=== PATIENT | female | born 1955 | race Caucasian/White ===

== ENCOUNTER → 2016-07-30 | Day surgery (SDC) | payer OTHER ==
[~2016-07-30] MED LIST: ARIP1TAB16 PO; ARIP2 PO; ASPI325T PO; ATEN-102 PO; ATOR40TA16 PO; CLON1 PO; CLON2TAB PO; CLOP75TA PO; CYMB60CA PO; DULO1CAP3 PO; FURO20TA PO; FURO40TA PO; GABA100C4 PO; GLIM4TAB PO; GLUCTAB PO; HYDR-3583 PO; LACTATED RINGER'S 1000 ML INJ 1,000 ML ONE; LORTA5 PO; LOVA1TAB47 PO; METF1000 PO; METO5TAB46 PO; PANT40TA3 PO; POTA-243 PO; POTA75TA PO; PROBCAP11 PO; PROPOFOL 500 MG/50 ML BTL IV ONE; PROT40TA PO; TOPA25TA8 PO; TOPI50TA4 PO
== END | disposition home or self-care (01) ==
LOC: ESDC 07:16
PROVIDERS: ATTEND Surgery
DX: K21.9 Gastro-esophageal reflux disease without esophagitis (principal); K29.70 Gastritis, unspecified, without bleeding
CPT/HCPCS: 00740; 43239; 88305; 88312; J3010; J7120

== ENCOUNTER 2016-08-26 15:20 | Inpatient (IN) | payer OTHER, MEDICAID, MEDICARE ==
[~2016-08-26] VITALS: Ht 167.6 cm; Wt 127.9 kg
[2016-09-05] MEDS ORDERED: TOPA25TA8 PO (15:05)
[2016-09-05] MEDS ORDERED: PROBCAP11 PO (15:05)
[2016-09-05] MEDS ORDERED: DULO1CAP3 PO (15:05)
[2016-09-05] MEDS ORDERED: METF1000 PO (15:05)
[2016-09-05] MEDS ORDERED: PANT40TA3 PO (15:05)
[2016-09-05] MEDS ORDERED: ATOR40TA16 PO (15:05)
[2016-09-05] MEDS ORDERED: HYDR-3583 PO (15:05)
[2016-09-05] MEDS ORDERED: CLON2TAB PO (15:05)
[2016-09-05] MEDS ORDERED: ARIP1TAB16 PO (15:05)
[2016-09-05] MEDS ORDERED: FURO20TA PO (15:05)
[2016-09-05] MEDS ORDERED: GABA100C4 PO (15:05)
[2016-09-05] MEDS ORDERED: GLIM4TAB PO (15:05)
[2016-09-05] MEDS ORDERED: POTA-243 PO (15:05)
[2016-09-05] MEDS ORDERED: CLOP75TA PO (15:05)
[2016-09-09] MEDS ORDERED: SCOPOLAMINE 1.5 MG PATCH ONE (06:08)
[2016-09-09] MEDS ORDERED: APREPITANT 40 MG CAP ONE (06:09)
[2016-09-09] MEDS ORDERED: ACETAMINOPHEN 1000 MG/100 ML VIAL IV ONE (06:09)
[2016-09-09] MEDS ORDERED: metroNIDAZOLE 500 MG INJ 100 ML IV ONE (06:09)
[2016-09-09] MEDS ORDERED: ONDANSETRON HCL 4 MG/2 ML VIAL ONE (06:09)
[2016-09-09] MEDS ORDERED: ceFAZolin 2 GM PREMIX 50 ML IV SCH (06:15)
[2016-09-09] MEDS ORDERED: ACETAMINOPHEN 1000 MG/100 ML VIAL IV SCH (06:15)
[2016-09-09] MEDS ORDERED: APREPITANT 40 MG CAP PO SCH (06:15)
[2016-09-09] MEDS ORDERED: SCOPOLAMINE 1.5 MG PATCH T-DERMAL SCH (06:15)
[2016-09-09] MEDS ORDERED: ONDANSETRON HCL 4 MG/2 ML VIAL IV PUSH SCH (06:15)
[2016-09-09] MEDS ORDERED: metroNIDAZOLE 500 MG INJ 100 ML IV SCH (06:15)
[2016-09-09 06:17] VITALS: BP 131/75; PULSE 64; RESP 20; TEMP 97.6; O2SAT 95
[2016-09-09] MEDS ORDERED: METOPROLOL TARTRATE 25 MG TAB PO PRN (06:30)
[2016-09-09] MEDS ORDERED: SODIUM CHLORID 0.9% 500 ML IV SCH (06:30)
[2016-09-09] MEDS ORDERED: LACTATED RINGER'S 1000 ML IV SCH (06:30)
[2016-09-09] MEDS ORDERED: INSULIN HUMAN REGULAR 1,000 UNITS/10 ML VIAL SQ PRN (06:30)
[2016-09-09] MEDS ORDERED: BUPIVACAINE/EPINEPHRINE 0.25% PF 30 ML VIAL ONE (07:01)
[2016-09-09] MEDS ORDERED: MIDAZOLAM HCL 2 MG/2 ML VIAL ONE (07:16)
[2016-09-09] MEDS ORDERED: BUPIVACAINE/EPINEPHRINE 0.25% PF 30 ML VIAL INFIL ONE (07:56)
[2016-09-09] MEDS ORDERED: METHYLENE BLUE 100 MG/10 ML VIAL OTHER ONE (07:56)
[2016-09-09] MEDS ORDERED: ENALAPRILAT 1.25 MG/ML VIAL IV PUSH PRN (09:30)
[2016-09-09] MEDS ORDERED: NALOXONE HCL 0.4 MG/ML AMP IV PRN (09:30)
[2016-09-09] MEDS ORDERED: diphenhydrAMINE HCL 50 MG/ML VIAL IV PRN (09:30)
[2016-09-09] MEDS ORDERED: SODIUM CHLORIDE 0.9% FLUSH 5 ML FLUSH IVF PRN (09:30)
[2016-09-09] MEDS ORDERED: GLUCAGON 1 MG/ML VIAL OTHER PRN (09:30)
[2016-09-09] MEDS ORDERED: ACETAMINOPHEN 1000 MG/100 ML VIAL IV PRN (09:30)
[2016-09-09] MEDS ORDERED: diphenhydrAMINE HCL ELIXIR 12.5 MG/5 ML CUP PO PRN (09:30)
[2016-09-09] MEDS ORDERED: ACETAMINOPHEN 325MG/HYDROcodone 7.5MG/15ML UDC PO PRN (09:30)
[2016-09-09] MEDS ORDERED: ONDANSETRON HCL 4 MG/2 ML VIAL IV PRN (09:30)
[2016-09-09] MEDS ORDERED: DEXTROSE 50% IN WATER 50 ML VIAL(D50) IV PUSH PRN (09:30)
[2016-09-09] MEDS ORDERED: Post-op Orders (for Pharmacy) MISC XX ONE (09:30)
[2016-09-09] MEDS ORDERED: NEOSTIGMINE 3 MG/3 ML SYR IV ONE (09:37)
[2016-09-09] MEDS ORDERED: LACTATED RINGER'S 1000 ML INJ 1,000 ML IV ONE (09:37)
[2016-09-09] MEDS ORDERED: ONDANSETRON HCL 4 MG/2 ML VIAL IV PUSH ONE (09:37)
[2016-09-09] MEDS ORDERED: PROPOFOL 200 MG/20 ML AMP IV ONE (09:37)
--- NOTE | 2016-09-09 09:37 | MP ---
cc: CHASE ORTA DATE OF 1955 DATE OF OPERATION 09/09/2016 PREOPERATIVE DIAGNOSIS Morbid obesity with a BMI of 45, complicated by obstructive sleep apnea, hypercholesterolemia, type 2 diabetes. POSTOPERATIVE DIAGNOSIS Morbid obesity with a BMI of 45, complicated by obstructive sleep apnea, hypercholesterolemia, type 2 diabetes. PROCEDURE PERFORMED Laparoscopic Amadou-en-Y gastric bypass, 100 cm Amadou limb, antegastric, antecolic. SURGEON Chase Pinedo MD ANESTHESIA General endotracheal anesthesia. ESTIMATED BLOOD LOSS Scant FINDINGS 1. Fatty liver. 2. Adhesions of omentum to small bowel. SPECIMENS None. COMPLICATIONS None. OPERATION The patient was brought into the operating room and placed on the operating table in supine position. Bilateral sequential inflation devices were placed on the lower extremities, general anesthesia instituted, Ernandez catheter placed, antibiotics initiated. The abdomen was prepped and draped sterilely. A point 18 cm distal to the xiphoid in the midline was anesthetized with 0.25% Marcaine with epinephrine. A skin incision was made, a 5-mm Optiview port placed under direct vision and pneumoperitoneum created. Under direct vision, a 5-mm left upper quadrant, a 12-mm left upper quadrant, a 12-mm right upper quadrant and 5-mm right upper quadrant ports were placed. Prior to placement of all ports, the skin and peritoneum were anesthetized with 0.25% Marcaine with epinephrine. The patient patient's omentum was taken off of the abdominal wall using a harmonic. It was split down the middle to create a path for the Amadou limb. The ligament of Treitz was identified, a point 40 cm distal identified, the small bowel divided using an [place] Flex staple with a white load, reinforced with SeamGuard. The distal segment was brought up for a distance of 100 cm, enterotomy created in this region, enterotomy created in the biliopancreatic limb and a [id number] stapled jejunojejunostomy created in the usual manner. The mesenteric defect of the jejunojejunostomy was closed with 2-0 Surgidac suture in a running manner. The patient was placed in reverse Trendelenburg position, left side up. The Lucy Flex retractor placed and the left lobe of the liver retracted. The angle of His was taken down bluntly, a point 5 cm distal to the GE junction along the lesser curve identified, the lesser sac entered using blunt dissection, the stomach partitioned horizontally using the [place] Flex stapler blue load. Additional firings were taken toward the angle of His to completely divide the stomach. A gastrotomy was created in the trang-stomach, enterotomy in the Amadou limb, a gastrojejunostomy created with a stomal opening of 2 cm. An 18-[place] OG tube was placed across the anastomosis. The defect was then closed in two layers of running 2-0 Vicryl. Prior to placement of the second layer, methylene blue was instilled through the OG tube. There was no evidence of extravasation. Evicel was then placed over the gastrojejunostomy, jejunojejunostomy and all staple lines, a 10 flat GAMAL placed posterior to the gastrojejunostomy. The operative field was inspected. Hemostasis was present. The Lucy Flex retractor was removed The pneumoperitoneum was released, all ports removed, all skin incisions closed with 4-0 Monocryl. The abdominal wall was cleaned and a sterile dressing placed. The patient was awakened and taken to recovery room stable. MD ANALI Minor/SSB /9:29 AM /9:32 AM BRENDA
[2016-09-09] MEDS ORDERED: fentaNYL CITRATE 250 MCG/5 ML AMP ONE (09:45)
[2016-09-09] MEDS ORDERED: MORPHINE SULFATE 30 MG/30 ML PCA IV SCH (09:45)
[2016-09-09] MEDS ORDERED: *ONDANSETRON 4 MG VIAL PERIprocedural Use ONLY ONE (09:48)
[2016-09-09] MEDS: METOCLOPRAMIDE HCL 10 MG/2 ML VIAL IVS SCH ×3 (09:51→20:42)
[2016-09-09] MEDS ORDERED: *morphine SULFATE 8 MG/ML PERIprocedure ONLY ONE ×2 (09:56→10:15)
[2016-09-09] MEDS ORDERED: *RESP: ALBUTEROL 2.5 MG/3 ML NEB (PRN) PERIprocedural Use ONLY NEB ONE (10:15)
[2016-09-09] MEDS ORDERED: *HYDROmorphone PF 1 MG VIAL PERIprocedural Use ONLY ONE (10:31)
[2016-09-09] MEDS: INSULIN NovoLIN REGULAR SUPPLEMENTAL SCALE SQ SCH ×3 (10:35→20:48)
[2016-09-09] MEDS ORDERED: DO NOT ADM ANY ANTICOAGULANT DRUGS XX PRN (10:45)
[2016-09-09] MEDS: 1/2 NS + KCL 20 MEQ INJ 1,000 ML IV SCH ×4 (10:45→23:45)
[2016-09-09 12:00] VITALS: BP 139/64; PULSE 80; RESP 22; TEMP 97.4; O2SAT 92
[2016-09-09] MEDS: PCA - TOTAL MG MORPHINE DELIVERED PER SHIFT SCH ×2 (14:00→20:45)
[2016-09-09] MEDS: metroNIDAZOLE 500 MG INJ 100 ML IV SCH ×2 (14:39→23:45)
[2016-09-09] MEDS: ONDANSETRON HCL 4 MG/2 ML VIAL IV PRN (14:39)
[2016-09-09] MEDS: ENOXAPARIN SODIUM 40 MG/0.4 ML SYRINGE SQ SCH (14:40)
[2016-09-09 16:00] VITALS: BP 122/58; PULSE 75; RESP 20; TEMP 96.4; O2SAT 93
[2016-09-09] MEDS: RESP: ALBUTEROL 2.5 MG/3 ML NEB (SCH) INH ×2 (16:41→21:16)
[2016-09-09 16:44] VITALS: O2SAT 97
[2016-09-09 20:00] VITALS: BP 123/64; PULSE 71; RESP 19; TEMP 97.6; O2SAT 91
[2016-09-09] MEDS: SODIUM CHLORIDE 0.9% FLUSH 5 ML FLUSH IVF SCH (20:41)
[2016-09-09 21:18] VITALS: O2SAT 96
[2016-09-10] VITALS (8 sets, daily range): BP systolic 109–149; BP diastolic 56–78; PULSE 65–98; RESP 16–20; TEMP 96.5–98.4; O2SAT 91–96
[2016-09-10] MEDS: RESP: ALBUTEROL 2.5 MG/3 ML NEB (SCH) INH ×6 (00:01→19:19)
[2016-09-10 05:25] LABS: AUTOMATED NEUTROPHIL # 5.8 TH/MM3 (1.8-7.7); BASOPHIL % 0.4 % (0.0-2.0); EOSINOPHIL % 0.1 % (0.0-4.0); HEMO FLAGS DIFF FINAL; LYMPH % 23.4 % (9.0-44.0); MEAN CELL VOLUME 86.9 FL (80.0-100.0); MEAN CORPUSCULAR HEMOGLOBIN 28.6 PG (27.0-34.0); MEAN CORPUSCULAR HGB CONC 32.9 % (32.0-36.0); MONO % 6.9 % (0.0-8.0); NEUT % 69.2 % (16.0-70.0); PLATELET COUNT 177 TH/MM3 (150-450); RED BLOOD COUNT 4.15 MIL/MM3 (4.00-5.30); WHITE BLOOD COUNT 8.4 TH/MM3 (4.0-11.0)
[2016-09-10] MEDS: METOCLOPRAMIDE HCL 10 MG/2 ML VIAL IVS SCH (05:40)
[2016-09-10] MEDS: INSULIN NovoLIN REGULAR SUPPLEMENTAL SCALE SQ SCH ×4 (05:40→21:00)
[2016-09-10] MEDS: PCA - TOTAL MG MORPHINE DELIVERED PER SHIFT SCH ×3 (05:43→22:00)
[2016-09-10 05:56] LABS: BICARBONATE 24.7 MEQ/L (21.0-32.0); MAGNESIUM 2.2 MG/DL (1.5-2.5); POTASSIUM 3.7 MEQ/L (3.5-5.1)
[2016-09-10] MEDS: PANTOPRAZOLE SOD 40 MG DELAYED RELEASE TAB PO SCH ×2 (08:29→08:41)
[2016-09-10] MEDS: ACETAMINOPHEN 325MG/HYDROcodone 7.5MG/15ML UDC PO PRN ×3 (08:30→22:26)
[2016-09-10] MEDS: PANTOPRAZOLE SODIUM 40 MG VIAL IVP SCH (08:30)
[2016-09-10] MEDS: metroNIDAZOLE 500 MG INJ 100 ML IV SCH (08:31)
[2016-09-10] MEDS: SODIUM CHLORIDE 0.9% FLUSH 5 ML FLUSH IVF SCH ×2 (08:31→21:00)
[2016-09-10] MEDS: 1/2 NS + KCL 20 MEQ INJ 1,000 ML IV SCH ×3 (08:40→17:43)
[2016-09-10] MEDS ORDERED: METOCLOPRAMIDE HCL 10 MG/2 ML VIAL IVS PRN (10:00)
[2016-09-10] MEDS ORDERED: INFLUENZA VIRUS VACCINE (QUADRIVALENT) 0.5 ML SYR IM ONE (10:00)
[2016-09-10] MEDS ORDERED: PNEUMOCOCCAL POLYVALENT INJ 25 MCG/0.5 ML SYR IM ONE (10:00)
[2016-09-10] MEDS ORDERED: ARIPiprazole 2 MG TAB PO SCH (11:00)
[2016-09-10] MEDS: clonazePAM 1 MG TAB PO SCH ×2 (11:21→22:10)
[2016-09-10] MEDS: TOPIRAMATE 25 MG TAB PO SCH ×2 (11:22→21:00)
[2016-09-10] MEDS: metFORMIN HCL 500 MG TAB PO SCH ×2 (11:25→17:46)
--- NOTE | 2016-09-10 12:49 | HHI.PR ---
Subjective Subjective Notes pt comfortable no cp no sob Objective Vitals/I&O Vital Signs Date Time Temp Pulse Resp B/P Pulse Ox O2 Delivery O2 Flow Rate FiO2 09/10/16 08:38 96 21 09/10/16 08:20 98.4 65 16 134/78 09/09/16 21:18 Nasal Cannula 09/09/16 16:44 3.00 Labs Laboratory Tests Test 09/10/16 04:55 White Blood Count 8.4 Red Blood Count 4.15 Hemoglobin 11.9 Hematocrit 36.0 Mean Corpuscular Volume 86.9 Mean Corpuscular Hemoglobin 28.6 Mean Corpuscular Hemoglobin 32.9 Concent Red Cell Distribution Width 16.0 Platelet Count 177 Mean Platelet Volume 9.3 Neutrophils (%) (Auto) 69.2 Lymphocytes (%) (Auto) 23.4 Monocytes (%) (Auto) 6.9 Eosinophils (%) (Auto) 0.1 Basophils (%) (Auto) 0.4 Neutrophils # (Auto) 5.8 Lymphocytes # (Auto) 2.0 Monocytes # (Auto) 0.6 Eosinophils # (Auto) 0.0 Basophils # (Auto) 0.0 CBC Comment DIFF FINAL Differential Comment Sodium Level 142 Potassium Level 3.7 Chloride Level 107 Carbon Dioxide Level 24.7 Anion Gap 10 Blood Urea Nitrogen 15 Creatinine 0.98 Estimat Glomerular Filtration 58 Rate Random Glucose 145 Calcium Level 8.7 Magnesium Level 2.2 Abdomen: Post-op tenderness Extremities: Perfused Wound Wound : Wound Location: Abdomen Appearance: Clean & Dry A/P Assessment and Plan s/p LRGBP POD #1 doing well Follow protocol Scott Da Silva MD Sep 10, 2016 12:49
[2016-09-10] MEDS: ENOXAPARIN SODIUM 40 MG/0.4 ML SYRINGE SQ SCH (14:07)
[2016-09-10] MEDS ORDERED: DULoxetine HCl DR 60 MG CAP PO SCH (21:00)
[2016-09-10] MEDS: ONDANSETRON HCL 4 MG/2 ML VIAL IV PRN (22:19)
[2016-09-11] VITALS: BP 115/55; PULSE 61; RESP 19; TEMP 99.3; O2SAT 95
[2016-09-11] MEDS: 1/2 NS + KCL 20 MEQ INJ 1,000 ML IV SCH ×3 (02:00→10:00)
[2016-09-11] MEDS: RESP: ALBUTEROL 2.5 MG/3 ML NEB (SCH) INH ×3 (03:29→08:54)
[2016-09-11] MEDS: PCA - TOTAL MG MORPHINE DELIVERED PER SHIFT SCH (06:00)
[2016-09-11] MEDS: INSULIN NovoLIN REGULAR SUPPLEMENTAL SCALE SQ SCH ×2 (07:00→11:00)
--- NOTE | 2016-09-11 08:06 | HHI.PR ---
Subjective Subjective Notes pt comfortable no cp no sob Objective Vitals/I&O Vital Signs Date Time Temp Pulse Resp B/P Pulse Ox O2 Delivery O2 Flow Rate FiO2 09/11/16 00:00 99.3 61 19 115/55 95 09/10/16 15:10 Nasal Cannula 2.00 09/10/16 08:38 21 Abdomen: Post-op tenderness Extremities: Perfused Wound Wound : Wound Location: Abdomen Appearance: Clean & Dry A/P Assessment and Plan s/p LRGBP POD #2 doing well D/c home today Scott Da Silva MD Sep 11, 2016 08:06
[2016-09-11 08:54] VITALS: O2SAT 94
[2016-09-11] MEDS: PANTOPRAZOLE SODIUM 40 MG VIAL IVP SCH (09:00)
[2016-09-11] MEDS: ACETAMINOPHEN 325MG/HYDROcodone 7.5MG/15ML UDC PO PRN ×2 (09:45→16:03)
[2016-09-11] MEDS: clonazePAM 1 MG TAB PO SCH (09:46)
[2016-09-11] MEDS: TOPIRAMATE 25 MG TAB PO SCH (09:46)
[2016-09-11] MEDS: metFORMIN HCL 500 MG TAB PO SCH (09:46)
[2016-09-11] MEDS: PANTOPRAZOLE SOD 40 MG DELAYED RELEASE TAB PO SCH (09:46)
[2016-09-11] MEDS: ONDANSETRON HCL 4 MG/2 ML VIAL IV PRN (09:52)
[2016-09-11] MEDS: SODIUM CHLORIDE 0.9% FLUSH 5 ML FLUSH IVF SCH ×2 (09:52→16:19)
[2016-09-11 16:00] VITALS: BP 167/82; PULSE 66; RESP 18; TEMP 96.8; O2SAT 98
[2016-09-11] MEDS: ENOXAPARIN SODIUM 40 MG/0.4 ML SYRINGE SQ SCH (16:04)
[2016-11-05] MEDS ORDERED: ASPI325T PO (11:58)
== END 2016-09-11 18:21 | disposition home or self-care (01) | DRG 621 ==
LOC: HSDI 09-09 05:30 → N07A 09-09 11:58
PROVIDERS: ADMIT Surgery; ATTEND Surgery
PROC: 0D164ZA Bypass Stomach to Jejunum, Percutaneous Endoscopic Approach (ICD-10-PCS; principal; 2016-09-09 07:23)
DX: E66.01 Morbid (severe) obesity due to excess calories (principal); K76.0 Fatty (change of) liver, not elsewhere classified; Z68.42 Body mass index [BMI] 45.0-49.9, adult; G47.33 Obstructive sleep apnea (adult) (pediatric); E78.00 Pure hypercholesterolemia, unspecified; E11.9 Type 2 diabetes mellitus without complications
CPT/HCPCS: 76937; 80048; 82948; 83735; 85025; 90471; 90472; 90686; 90732; 94150; 94640; 94664; C9113; G0008; G0009; J0131; J0690; J1170; J1650; J2250; J2270; J2405; J2710; J2765; J3010; J7120; J7613; J8501; Q2038

== ENCOUNTER → 2016-11-05 | Outpatient (CLI) | payer OTHER ==
[~2016-11-05] VITALS: Ht 167.6 cm; Wt 110.2 kg
[~2016-11-05] MED LIST changes: -ARIP2 PO; -ATEN-102 PO; +CHLORHEXIDINE GLUCONATE 2 % 1 PACK (2 CLOTHS) TOPICAL PRN; -CLON1 PO; -CYMB60CA PO; -FURO40TA PO; -GLUCTAB PO; +INSULIN HUMAN REGULAR 1,000 UNITS/10 ML VIAL SQ PRN; -LACTATED RINGER'S 1000 ML INJ 1,000 ML ONE; +LACTATED RINGER'S 1000 ML IV PRN; -LORTA5 PO; -LOVA1TAB47 PO; -METO5TAB46 PO; +METOPROLOL TARTRATE 25 MG TAB PO PRN; -POTA75TA PO; +POVIDONE IODINE 5% (ANTISEPSIS KIT) 4 APPLICATIONS EACH NARE PRN; +PROPOFOL 200 MG/20 ML AMP IV ONE; -PROPOFOL 500 MG/50 ML BTL IV ONE; -PROT40TA PO; +SODIUM CHLORID 0.9% 500 ML IV PRN; -TOPI50TA4 PO
[2016-11-05 12:05] VITALS: BP 115/68; PULSE 66; RESP 18; TEMP 98.6; O2SAT 94
[2016-11-05 14:26] VITALS: BP 100/56; PULSE 68; RESP 18; TEMP 97.8; O2SAT 95
--- NOTE | 2016-11-05 14:28 | GIPROC ---
[facility] [address] [facility]. [facility], [address] EGD PROCEDURE REPORT EXAM DATE: 11/05/2016 PATIENT NAME: Marisabel Ellison MR #: [id number] BIRTHDATE: 1955 ATTENDING: Gonzalo Stovall MD ORDER #: [id number] MANAGER ROOFING: Ainsley Andujar and Kellee Coles STATUS: outpatient INDICATIONS: The patient is a 61 yr old female here for an EGD due to hx of rygb, heartburn, and melena PROCEDURE PERFORMED: EGD, diagnostic MEDICATIONS: None and Per Anesthesia. TOPICAL ANESTHETIC: none CONSENT: The patient understands the risks and benefits of the procedure and understands that these risks include, but are not limited to: sedation, allergic reaction, infection, perforation and/or bleeding. Alternative means of evaluation and treatment include, among others: physical exam, x-rays, and/or surgical intervention. The patient elects to proceed with this endoscopic procedure. medical equipment was checked for proper function. Hand hygiene and appropriate measures for infection prevention was taken. After the risks, benefits and alternatives of the procedure were thoroughly explained, Informed consent was verified, confirmed and timeout was successfully executed by the treatment team. The patient was anesthetized with topical anesthesia and the EC-[id number] (Pedi C) endoscope was introduced through the mouth and advanced to the anastomosis. Retroflexion was not performed The gastroscope was then slowly withdrawn and removed. Blind limb 8cm, no evidence of bleeding or ulcer, mild esophagitis, otherwise normal. ADVERSE EVENTS: There were no complications. IMPRESSIONS: 1. Blind limb 8cm, no evidence of bleeding or ulcer, mild esophagitis, otherwise normal 2. Retroflexion was not performed RECOMMENDATIONS: Continue PPI PATIENT CONDITION: fair DISPOSITION: Home REPEAT EXAM: NONE Gonzalo Stovall MD eSigned: Gonzalo Stovall MD 11/05/2016 2:27 PM cc: Scott Da Silva M.D.
--- NOTE | 2016-11-06 10:49 | EKG ---
Date Performed: 11/05/2016 Time Performed: 11:41:39 PTAGE: 61 years EKG: Sinus rhythm WITH OCCASIONAL VENTRICULAR PREMATURE COMPLEXES LEFT BUNDLE BRANCH BLOCK ABNORMAL ECG PREVIOUS TRACING : 07/07/2013 22.42 Compared to prior tracing no significant change DOCTOR: Sarah Evans Interpretating Date/Time 11/06/2016 10:48:26
== END ==
LOC: HEND 11:06
PROVIDERS: ATTEND Surgery
DX: R12 Heartburn (principal); Z98.84 Bariatric surgery status; Z01.810 Encounter for preprocedural cardiovascular examination
CPT/HCPCS: 93005